=== PATIENT | male | born 1945 | race Caucasian/White ===

== ENCOUNTER 2018-11-20 07:27 | Inpatient (IN) | payer MEDICARE, OTHER ==
[~2018-11-20] VITALS: Ht 172.7 cm; Wt 82.2 kg
--- NOTE | 2018-11-20 07:35 | NUR ---
PAUL, FROM B AND C, C/O LEFT ELBOW PAIN S/P GLF. DENIES BEING UNCONSCIOUS. TACHY 120, WILL CONTINUE TO MONITOR. Addendum: 11/20/18 at 0754 by KENNETH CORRECTION: RIGHT ELBOW
[2018-11-20] MEDS ORDERED: ACETAMINOPHEN ES 500 MG TABLET ONE (07:58)
[2018-11-20] MEDS ORDERED: ACETAMINOPHEN ES 500 MG TABLET PO ONE (08:00)
[2018-11-20] MEDS ORDERED: IV NS 0.9% 1,000 ML BAG IV ONE (08:00)
[2018-11-20] MEDS ORDERED: VANCOMYCIN 1 GM in IV D5W 250 ML IV ONE (08:00)
[2018-11-20 08:19] LABS: BASOPHILS % (AUTO) 0.1 % (0.0-2.0); EOSINOPHILS % (AUTO) 0.5 % (0.0-6.0); HEMATOCRIT 44 % (39-51); HEMOGLOBIN 14.8 g/dL (13.5-17.5); LYMPHOCYTES # (AUTO) 0.7 /CMM (0.8-4.8); MEAN CORPUSCULAR HGB CONC 34 g/dl (31.0-36.0); MEAN CORPUSCULAR VOLUME 91 fL (80-96); MONOCYTES # (AUTO) 1.3 /CMM (0.1-1.30); MONOCYTES % (AUTO) 16.3 % (2.0-12.0); NEUTROPHILS # (AUTO) 6.1 /CMM (1.8-8.9); NEUTROPHILS % (AUTO) 74.1 % (43.0-81.0); PLATELET COUNT (AUTO) 198 /CMM (150-450); RED BLOOD CELL COUNT(AUTO) 4.78 MIL/uL (4.5-6.0); WHITE BLOOD COUNT (AUTO) 8.3 K/uL (4.3-11.0)
[2018-11-20 08:33] LABS: CARBON DIOXIDE 23 mmol/L (21-32); CHLORIDE 104 mmol/L (98-107); CREATININE 1.2 mg/dL (0.6-1.3); GLUCOSE 110 mg/dL (74-106); POTASSIUM 3.6 mmol/L (3.5-5.1); SODIUM SERUM 139 mmol/L (136-145); UREA NITROGEN, BLOOD 12 mg/dL (7-18)
[2018-11-20 08:48] LABS: APPEARANCE,URINE CLEAR (CLEAR); BILIRUBIN,URINE NEGATIVE (NEGATIVE); BLOOD, URINE NEGATIVE Ery/uL (NEGATIVE); COLOR,URINE YELLOW (YELLOW); KETONES,URINE TRACE (NEGATIVE); LEUKOCYTE ESTERASE ,URINE NEGATIVE (NEGATIVE); NITRITE, URINE NEGATIVE (NEGATIVE); PROTEIN,URINE NEGATIVE (NEGATIVE); UGLUCOSE NEGATIVE (NEGATIVE); UROBILINOGEN,URINE 0.2 EU/dL (0.2)
[2018-11-20 08:51] LABS: ALANINE AMINOTRANSFERASE 27 U/L (12-78); ALBUMIN 3.4 g/dL (3.4-5.0); ALKALINE PHOSPHATASE 38 U/L (46-116); ASPARTATE AMINOTRANSFERASE 20 U/L (15-37); TOTAL PROTEIN, SERUM 7.1 g/dL (6.4-8.2)
[2018-11-20 08:51] LABS: BACTERIA,URINE Rare /HPF (None Seen); RBC,URINE 0-2 /HPF (0-2); SQUAMOUS EPITHELIAL CELL,UR Rare /HPF (None Seen); WBC,URINE 0-2 /HPF (0-3)
[2018-11-20 08:57] LABS: BILIRUBIN,TOTAL 0.6 mg/dL (0.2-1.0)
[2018-11-20] MEDS ORDERED: CT SWABBABLE VALVE TRANS SET 1 EA INFUS.SET MC ONE (09:04)
[2018-11-20] MEDS ORDERED: IV NS 0.9% 250 ML IV ONE (09:04)
[2018-11-20] MEDS ORDERED: IOHEXOL-300 100 ML VIAL IV ONE (09:04)
[2018-11-20 09:08] LABS: BILIRUBIN,DIRECT 0.1 mg/dL (0.0-0.2)
--- NOTE | 2018-11-20 09:24 | NUR ---
RECEIVED A [facility] [phone]
[2018-11-20] MEDS ORDERED: PIPERACILLIN /TAZOBACTAM 3.375 G VIAL IV ONE (10:11)
[2018-11-20] MEDS ORDERED: PIPERACILLIN /TAZOBACTAM 3.375 G in IV D5W 50 ML IV ONE (10:30)
--- NOTE | 2018-11-20 11:30 | NUR ---
patient requested for straight catheter.
--- NOTE | 2018-11-20 11:32 | NUR ---
CALLED DR COTTON. ON THE PHONE WITH DR LOYA.
--- NOTE | 2018-11-20 11:50 | NUR ---
310-[address] GRAVES
--- NOTE | 2018-11-20 12:14 | NUR ---
gave report to Bibi MADDEN. Patient will go to room 310
--- NOTE | 2018-11-20 12:29 | NUR ---
PATIENT TRANSFERRED TO ROOM 310-2 MED SURG, ACCOMPANIED BY TECH. PATIENT IN STABLE CONDITION, ON O2 AT 2LPM VIA NC WITH SPO2 OF 97%.
--- NOTE | 2018-11-20 12:37 | NUR ---
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 Patient fully admitted, awaiting orders.
[2018-11-20 12:59] VITALS: BP 124/90
[2018-11-20 13:00] VITALS: BP 168/62
[2018-11-20] MEDS ORDERED: ZOLPIDEM TARTRATE 5 MG TABLET PO PRN (13:30)
[2018-11-20] MEDS ORDERED: MAG HYDROX/AL HYDROX/SIMETH 30 ML UDC PO PRN (13:30)
[2018-11-20] MEDS ORDERED: Z GUARD REMEDY 2 OZ OINT TP PRN (13:30)
[2018-11-20] MEDS ORDERED: MAGNESIUM HYDROXIDE 30 ML UDC PO PRN (13:30)
[2018-11-20] MEDS ORDERED: ONDANSETRON HCL/PF 4 MG/2 ML VIAL IVP PRN (13:30)
[2018-11-20] MEDS ORDERED: HYDROCODONE/APAP 5/325MG 1 EACH TABLET PO PRN (13:30)
--- NOTE | 2018-11-20 14:45 | NUR ---
MS/RN Orders Admitting orders given by Dr Jacome.
[2018-11-20] MEDS ORDERED: FEE PK DOSING 1 MIN EA MC ONE (14:53)
[2018-11-20] MEDS: ACETAMINOPHEN 325 MG TABLET PO PRN (15:26)
[2018-11-20] MEDS: IV NS 0.9% 1,000 ML IV PRN (15:28)
[2018-11-20 16:00] VITALS: BP 132/78
[2018-11-20] MEDS: PIPERACILLIN /TAZOBACTAM 3.375 G in IV D5W 50 ML IV SCH (17:58)
[2018-11-20] MEDS ORDERED: PIPERACILLIN /TAZOBACTAM 4.5 G in IV D5W 50 ML IV SCH (18:00)
--- NOTE | 2018-11-20 18:22 | NUR ---
MS/RN End note All orders noted and carried out, IVAB infusing as ordered, no reaction noted. Patient educated as to what each new medication was for and possible side effects to look out for and be aware off. Needs attended, will endorse to shift superintendent caustic cresylate.
--- NOTE | 2018-11-20 19:05 | NUR ---
RN MS OPENING NOTES RECEIVED PATIENT IN BED, AWAKE ALERT AND ORIENTED X3, ABLE TO MAKE SIMPLE NEEDS KNOWN, RESPIRATIONS EVEN AND UNLABORED WITH EQUAL RISE AND FALL OF CHEST, DENIES ANY PAIN OR DISCOMFORT AT THIS TIME, IV SITE TO RIGHT AC #18G INTACT AND PATENT, NO REDNESS, NO INFILTRATION PRESENT, IVF RUNNING ORDERED, ORIENTED TO STAFF AND CALL LIGHT AND KEPT WITHIN REACH, SAFETY PRECAUTIONS IN PLACE, LOW BED AND LOCKED, SAFETY PRECAUTIONS IN PLACE, BED ALARM IN PLACE, PATIENT PROVIDED WITH PERINEAL CARE AND REPOSITIONED AND HEELS OFFLOADED, ALL NEEDS ATTENDED AT THIS TIME, REMAINS COMFORTABLE WILL CONTINUE TO MONITOR AND ADDRESS NEEDS.
[2018-11-20 20:00] VITALS: BP 113/73
--- NOTE | 2018-11-20 20:18 | NUR ---
MARYANNE MS NOTES EKG DONE RESULTS NORMAL ECG SINUS RHYTHM 79 BPM
--- NOTE | 2018-11-20 21:00 | NUR ---
RN MS NOTES PER PATIENT HAS NOT HAD A BM IN A COUPLE DAYS, DENIES ANY ABD PAIN AT THIS TIME, PRUNE JUICE OFFERED AND GIVEN , OFFERED MILK OF MAGNESIUM, PATIENT DOES NOT WANT AT THIS TIME WANTS TO TRY PRUNE JUICE FIRST.
[2018-11-20] MEDS: VANCOMYCIN 1 GM in IV D5W 250 ML IV SCH (21:16)
[2018-11-21] MEDS: PIPERACILLIN /TAZOBACTAM 3.375 G in IV D5W 50 ML IV SCH ×4 (00:03→17:39)
--- NOTE | 2018-11-21 04:54 | NUR ---
RN MS NOTES PRUNE JUICE EFFECTIVE HAD LARGE BOWEL MOVEMENT
[2018-11-21] MEDS: IV NS 0.9% 1,000 ML IV PRN ×2 (05:17→21:03)
--- NOTE | 2018-11-21 06:23 | NUR ---
RN MS CLOSING NOTES PATIENT IN BED, AWAKE ALERT AND ORIENTED X3, ABLE TO MAKE SIMPLE NEEDS KNOWN, RESPIRATIONS EVEN AND UNLABORED WITH EQUAL RISE AND FALL OF CHEST, 0N 2 L VIA NC, DENIES ANY PAIN OR DISCOMFORT AT THIS TIME, IV SITE TO RIGHT AC #18G INTACT AND PATENT, NO REDNESS, NO INFILTRATION PRESENT, IVF RUNNING ORDERED,CALL LIGHT KEPT WITHIN REACH, SAFETY PRECAUTIONS IN PLACE, LOW BED AND LOCKED, BED ALARM IN PLACE, PATIENT PROVIDED WITH PERINEAL CARE AND REPOSITIONED AND HEELS OFFLOADED, HEELS AND SACRAL SKIN IS INTACT, ALL NEEDS ATTENDED AT THIS TIME, REMAINS COMFORTABLE WILL CONTINUE TO MONITOR AND ADDRESS NEEDS AND ENDORSE TO NEXT SHIFT. NO CHANGES THROUGH OUT SHIFT.
--- NOTE | 2018-11-21 07:30 | NUR ---
RN OPENING NOTES PATIENT IN STABLE CONDITION. A/OX3, ABLE TO MAKE NEEDS KNOWN, EPISODES OF CONFUSION NOTED. NOT IN ANY FORM OF DISTRESS, NO SOB, DENIED PAIN OR DISCOMFORT AT THIS TIME. IV ACCESS INTACT AND PATENT. KEPT PATIENT SAFE AND COMFORTABLE. BED IN LOW/LOCKED POSITION, SIDERAILS UPX2, CALL LIGHT IN REACH. WILL CONTINUE TO MONITOR ACCORDINGLY.
[2018-11-21 07:31] LABS: BASOPHILS % (AUTO) 0.2 % (0.0-2.0); EOSINOPHILS % (AUTO) 1.9 % (0.0-6.0); HEMATOCRIT 42 % (39-51); HEMOGLOBIN 14.2 g/dL (13.5-17.5); LYMPHOCYTES # (AUTO) 1.2 /CMM (0.8-4.8); LYMPHOCYTES % (AUTO) 19.2 % (20.0-44.0); MEAN CORPUSCULAR HGB CONC 34 g/dl (31.0-36.0); MEAN CORPUSCULAR VOLUME 92 fL (80-96); MONOCYTES # (AUTO) 1.2 /CMM (0.1-1.30); MONOCYTES % (AUTO) 18.7 % (2.0-12.0); NEUTROPHILS # (AUTO) 3.7 /CMM (1.8-8.9); PLATELET COUNT (AUTO) 181 /CMM (150-450); RED BLOOD CELL COUNT(AUTO) 4.58 MIL/uL (4.5-6.0); WHITE BLOOD COUNT (AUTO) 6.2 K/uL (4.3-11.0)
[2018-11-21 07:38] LABS: ALANINE AMINOTRANSFERASE 21 U/L (12-78); ALBUMIN 2.9 g/dL (3.4-5.0); ALKALINE PHOSPHATASE 31 U/L (46-116); ASPARTATE AMINOTRANSFERASE 26 U/L (15-37); BILIRUBIN,TOTAL 0.6 mg/dL (0.2-1.0); CALCIUM, SERUM 8.9 mg/dL (8.5-10.1); GLUCOSE 103 mg/dL (74-106); PHOSPHORUS 3.1 mg/dL (2.5-4.9); TOTAL PROTEIN, SERUM 6.5 g/dL (6.4-8.2); UREA NITROGEN, BLOOD 11 mg/dL (7-18)
[2018-11-21 07:46] LABS: CARBON DIOXIDE 26 mmol/L (21-32); CHLORIDE 107 mmol/L (98-107); POTASSIUM 4.1 mmol/L (3.5-5.1); SODIUM SERUM 142 mmol/L (136-145)
[2018-11-21 07:50] LABS: CHOLESTEROL 125 mg/dL (<200); HDL CHOLESTEROL 31 mg/dL (40-60); LDL 83 mg/dL (0-99); TRIGLYCERIDES 70 mg/dL (30-150)
[2018-11-21 08:00] VITALS: BP 126/84
[2018-11-21 08:57] LABS: EOSINOPHILS % (MANUAL) 4 % (0-4); LYMPHOCYTES % (MANUAL) 18 % (16-48); MONOCYTES % (MANUAL) 17 % (0-11.0); NEUTROPHILS % (MANUAL) 61 (42-76)
[2018-11-21] MEDS: ACETAMINOPHEN 325 MG TABLET PO PRN ×2 (09:02→22:41)
[2018-11-21] MEDS: VANCOMYCIN 1 GM in IV D5W 250 ML IV SCH ×2 (09:04→21:00)
--- NOTE | 2018-11-21 09:43 | NUR ---
WOUND CARE CONSULT: PT PRESENTS WITH INCONTINENCE AND RED AREA ON RT SIDE OF FACE/CHEEK, PRESENT ON ADMISSION. RECOMMENDATIONS MADE FOR SKIN PROTECTION. DISCUSSED WITH NURSING STAFF. DEFER TO MD FOR FACIAL REDNESS. WILL SEE PRN. CURRENT CHELSEA SCORE IS 16. Addendum: 11/21/18 at 0944 by KALPESH HUSAIN WNDNU Amended: Links added.
[2018-11-21 15:57] VITALS: BP 106/74
[2018-11-21] MEDS: LACTOBACILLUS RHAMNOSUS GG 1 EACH CAP.SPRINK PO SCH (17:29)
--- NOTE | 2018-11-21 17:35 | NUR ---
RN NOTES: HOME MEDS FOLLOWED UP WITH PATIENT'S L[facility]LORD REGARDING HOME MEDS. SHE WILL GIVE IT TOMORROW BECAUSE SHE DOESNT HAVE THE LIST WITH HER AT THE MOMENT.
--- NOTE | 2018-11-21 19:37 | NUR ---
RN CLOSING NOTES PATIENT IN STABLE CONDITION. ALL NEEDS ATTENDED AND PROVIDED. ALL DUE MEDICATIONS ADMINISTERED ORDERED. KEPT PATIENT SAFE AND COMFORTABLE. BED IN LOW/LOCKED POSITON, SIDERAIL UP X 2, CALL LIGHT IN REACH. ENDORSED TO NIGHT RN FOR RAYNE.
--- NOTE | 2018-11-21 19:50 | NUR ---
MS RN NOTES RECEIVED ON BED A/O X 2-3,BREATHING NORMAL,NOT IN ANY FORM OF DISTRESS.IVF NS 75ML/HR RATE IN PROGRESS VIA IV PUMP ON RIGHT AC,SITE PATENT.INCONTINENT OF URINE,CALL LIGHT IN REACH,NEEDS ANTICIPATED.
[2018-11-21 20:00] VITALS: BP 108/78
--- NOTE | 2018-11-21 20:00 | NUR ---
MS RN NOTES VANCO TROUGH 11,DOSE ADMINISTERED
--- NOTE | 2018-11-21 22:41 | NUR ---
MS RN NOTES C/O GENERALIZED PAIN 3/10 ON PAIN SCALE,TYLENOL 650MG PO GIVEN PER PATIENT REQUEST.
[2018-11-22] MEDS: PIPERACILLIN /TAZOBACTAM 3.375 G in IV D5W 50 ML IV SCH ×5 (00:09→23:50)
--- NOTE | 2018-11-22 06:55 | NUR ---
MS RN NOTES CALM AND QUIET THRU OUT SHIFT.SLEPT WELL,IVF IN PROGRESS,IV ABX TOLERATED WELL.IN NO ACUTE DISTRESS.WILL ENDORSE TO DAY NURSE FOR RAYNE
--- NOTE | 2018-11-22 07:20 | NUR ---
RN OPENING NOTES PATIENT IN STABLE CONDITION. A/OX3, ABLE TO MAKE NEEDS KNOWN. NOT IN ANY FORM OF DISTRESS, NO SOB, DENIED PAIN OR DISCOMFORT AT THIS TIME. IV ACCESS INTACT AND PATENT. KEPT PATIENT SAFE AND COMFORTABLE. BED IN LOW/LOCKED POSITION, SIDERAILS UPX2, CALL LIGHT IN REACH. WILL CONTINUE TO MONITOR ACCORDINGLY.
[2018-11-22 07:30] LABS: CALCIUM, SERUM 8.8 mg/dL (8.5-10.1); CARBON DIOXIDE 28 mmol/L (21-32); CHLORIDE 108 mmol/L (98-107); CREATININE 1.1 mg/dL (0.6-1.3); GLUCOSE 100 mg/dL (74-106); POTASSIUM 4.3 mmol/L (3.5-5.1); SODIUM SERUM 144 mmol/L (136-145); UREA NITROGEN, BLOOD 10 mg/dL (7-18)
[2018-11-22 08:00] VITALS: BP 114/63
[2018-11-22] MEDS: LACTOBACILLUS RHAMNOSUS GG 1 EACH CAP.SPRINK PO SCH ×2 (09:01→17:26)
[2018-11-22] MEDS: VANCOMYCIN 1 GM in IV D5W 250 ML IV SCH ×2 (09:01→20:47)
[2018-11-22] MEDS ORDERED: TRAZ-182 PO (15:47)
[2018-11-22] MEDS ORDERED: CARB-93 PO (15:47)
[2018-11-22] MEDS ORDERED: DIVA-78 PO (15:47)
[2018-11-22] MEDS ORDERED: OLAN15TA3 PO (15:47)
[2018-11-22] MEDS ORDERED: LORA0.5T PO (15:47)
[2018-11-22] MEDS ORDERED: CHOL100044 PO (15:47)
[2018-11-22] MEDS ORDERED: PANT40TA2 PO (15:47)
[2018-11-22] MEDS ORDERED: BENZ0.5T43 PO (15:47)
[2018-11-22] MEDS ORDERED: LOSA50TA39 PO (15:47)
[2018-11-22 16:00] VITALS: BP 120/75
[2018-11-22] MEDS: ACETAMINOPHEN 325 MG TABLET PO PRN (17:28)
[2018-11-22] MEDS: IV NS 0.9% 1,000 ML IV PRN (17:38)
--- NOTE | 2018-11-22 19:28 | NUR ---
MS RN RECEIVE PT IN BED. A/O X 3. RESPIRATIONS EVEN AND UNLABORED, NO SOB NOTED, NO DISTRESS, SAFETY MEASURES IN PLACE. WILL CONTINUE TO MONITOR.
[2018-11-22 20:00] VITALS: BP 125/79
[2018-11-23] MEDS: PIPERACILLIN /TAZOBACTAM 3.375 G in IV D5W 50 ML IV SCH ×2 (05:12→12:35)
--- NOTE | 2018-11-23 05:59 | NUR ---
RN CLOSING NOTE ASLEEP AND EASILY AWAKEN. NOT IN DISTRESS, STABLE. NEEDS ATTENDED AND ANTICIPATED, KEPT CLEAN AND DRY AND COMFORT. TOLERATING ROOM AIR 98%. GOOD SKIN CARE PROVIDED, NURSING CARE RENDERED, SAFETY MEASURES IN PLACE, BED IN LOW LOCKED POSITION, CALL LIGHT WITHIN EASY REACH. ENDORSE TO NEXT SHIFT CONTINUITY OF CARE.
[2018-11-23 06:56] LABS: CARBON DIOXIDE 25 mmol/L (21-32); CHLORIDE 107 mmol/L (98-107); CREATININE 1.1 mg/dL (0.6-1.3); GLUCOSE 100 mg/dL (74-106); SODIUM SERUM 143 mmol/L (136-145); UREA NITROGEN, BLOOD 11 mg/dL (7-18)
[2018-11-23 08:00] VITALS: BP 135/87
[2018-11-23] MEDS: LACTOBACILLUS RHAMNOSUS GG 1 EACH CAP.SPRINK PO SCH (08:47)
[2018-11-23] MEDS: ACETAMINOPHEN 325 MG TABLET PO PRN (08:47)
[2018-11-23] MEDS: VANCOMYCIN 1 GM in IV D5W 250 ML IV SCH (08:47)
--- NOTE | 2018-11-23 15:20 | NUR ---
REPORT GIVEN TO SCOTT MADDEN FROM [facility]. SHE ASK NOT TO REMOVE IV ASSESS SINCE PATIENT ON IV ANTIBIOTICS. CHARGE NURSE NOTIFIED.
--- NOTE | 2018-11-23 16:30 | NUR ---
PATIENT CLEARED FOR D/C TO [facility] BY . PATIENT ALERT AND ORIENTED X 3, VS ARE STABLE AND WITHIN THE NORMAL RANGE, AFEBRILE.NO DISTRESS , NO COMPLAIN OF PAIN. PATIENT D/C WITH IV ANTIBIOTICS FOR 7 MORE DAYS. NEW IV LINE INSERTED TO THE LEFT FOREARM G #22 AND DATED,FLASHED WELL. OLD IV LINE REMOVED, NO REDNESS AT THE SITE NOTED. ID WRIST BAND REMOVED. PICTURES ARE TAKEN AND PLACED IN THE CHART( NO WOUNDS). D/C INSTRUCTIONS AND EDUCATION PROVIDED TO PATIENT. PATIENT VERBALIZED UNDERSTANDING AND SIGHED D/C FORMS WELL VALUABLE FORM (ALL BELONGINGS WITH THE PATIENT).MED.RECON FORM PROVIDED FOR THE FACILITY.PATIENT PICKED UP BY AMBULANCE IN STABLE CONDITION.
== END 2018-11-23 16:45 | DRG 602 ==
LOC: ER 07:27 → MED 12:06
PROVIDERS: ADMIT Internal Medicine; ATTEND Internal Medicine
DX: L03.211 Cellulitis of face (principal); N17.0 Acute kidney failure with tubular necrosis; G20 Parkinson's disease; F41.9 Anxiety disorder, unspecified; I10 Essential (primary) hypertension; K21.9 Gastro-esophageal reflux disease without esophagitis; F29 Unspecified psychosis not due to a substance or known physiological condition; Z88.0 Allergy status to penicillin; W07.XXXA Fall from chair, initial encounter; Y92.009 Unspecified place in unspecified non-institutional (private) residence as the place of occurrence of the external cause
CPT/HCPCS: 36415; 70487-TC; 71045-TC; 73030-TC; 80048-TC; 80053-TC; 80061-TC; 80076-TC; 80202-TC; 81000-TC; 83605-TC; 83735-TC; 84100-TC; 84484-TC; 85025-TC; 85730-TC; 87040-TC; 87081-TC; 87086-TC; 97110-TC; 97116-TC; 97530-TC; G0378; J2543; J3370; J7030; J7050; J7060; Q9967

== ENCOUNTER 2018-11-27 15:01 | Emergency (ER) | payer MEDICARE ==
[~2018-11-27] VITALS: Ht 170.2 cm; Wt 83.5 kg
[~2018-11-27 15:01] MED LIST: BENZ0.5T43 PO; CARB-93 PO; CHOL100044 PO; DIVA-78 PO; LORA0.5T PO; LOSA50TA39 PO; OLAN15TA3 PO; PANT40TA2 PO; TRAZ-182 PO
--- NOTE | 2018-11-27 15:30 | NUR ---
PT'S CONSERVATOR CALLED. TIGIST WICK IS THE CONSERVATOR AND CAN BE REACHED AT [phone]. PT CAME FROM [facility].
--- NOTE | 2018-11-27 17:30 | NUR ---
PT APPEARS TO BE RESTING COMFORTABLY WITH NO S/S OF PAIN OR DISTRESS.
--- NOTE | 2018-11-27 17:44 | NUR ---
CALLED [facility]. ETA 10-15 MINS TRIP # [id number]
--- NOTE | 2018-11-27 18:25 | NUR ---
Patient discharged to home in stable condition. Written and verbal after care instructions given. Patient verbalizes understanding of instruction. COPY OF CT GIVEN TO EMT. PT'S VSS.
[2018-11-27 18:28] VITALS: BP 144/85
== END 2018-11-27 18:30 | disposition home or self-care (01) ==
LOC: ER 15:05
DX: S09.8XXA Other specified injuries of head, initial encounter (principal); G20 Parkinson's disease; I10 Essential (primary) hypertension; W18.09XA Striking against other object with subsequent fall, initial encounter; Y93.89 Activity, other specified; Y92.89 Other specified places as the place of occurrence of the external cause; Y99.8 Other external cause status
CPT/HCPCS: 70450; 99284; A4606

== ENCOUNTER 2019-01-26 15:55 | Emergency (ER) | payer MEDICARE ==
[~2019-01-26] VITALS: Ht 180.3 cm; Wt 90.3 kg
--- NOTE | 2019-01-26 15:59 | NUR ---
PT HALFWAY ANDREW ESCOTO FOR UPDATES: [phone]
--- NOTE | 2019-01-26 16:05 | NUR ---
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 HX OF PARKINSON'S DSE. TO ER BED 10, HOOKED TO MONITOR, CHANGED TO GOWN, PROVIDED W WARM BLANKET, AWAITING MD MOREJON.
--- NOTE | 2019-01-26 16:07 | NUR ---
DR LOYA AT BEDSIDE
[2019-01-26 16:30] LABS: BASOPHILS # (AUTO) 0.1 /CMM (0.0-0.2); BASOPHILS % (AUTO) 0.8 % (0.0-2.0); EOSINOPHILS % (AUTO) 3.6 % (0.0-6.0); HEMATOCRIT 43 % (39-51); HEMOGLOBIN 14.3 g/dL (13.5-17.5); LYMPHOCYTES # (AUTO) 1.6 /CMM (0.8-4.8); MEAN CORPUSCULAR HGB CONC 33 g/dl (31.0-36.0); MEAN CORPUSCULAR VOLUME 93 fL (80-96); MONOCYTES # (AUTO) 0.7 /CMM (0.1-1.30); NEUTROPHILS # (AUTO) 3.8 /CMM (1.8-8.9); NEUTROPHILS % (AUTO) 59.6 % (43.0-81.0); PLATELET COUNT (AUTO) 219 /CMM (150-450); WHITE BLOOD COUNT (AUTO) 6.3 K/uL (4.3-11.0)
[2019-01-26 16:37] LABS: CALCIUM, SERUM 8.5 mg/dL (8.5-10.1); CARBON DIOXIDE 17 mmol/L (21-32); CHLORIDE 105 mmol/L (98-107); CREATININE 1.3 mg/dL (0.6-1.3); GLUCOSE 108 mg/dL (74-106); SODIUM SERUM 141 mmol/L (136-145); UREA NITROGEN, BLOOD 15 mg/dL (7-18)
[2019-01-26 16:50] LABS: B-TYPE NATRIURETIC PEPTIDE 42 PG/ML (0-125)
[2019-01-26] MEDS ORDERED: IV NS 0.9% 1,000 ML BAG IV ONE (17:00)
--- NOTE | 2019-01-26 18:20 | NUR ---
YAJAIRA BIRCH ETA TO [facility] ON [address] [id number] ETA TRIP #[id number]
--- NOTE | 2019-01-26 18:36 | NUR ---
ANDREW ESCOTO AWARE OF PT COMING BACK [facility]
--- NOTE | 2019-01-26 19:27 | NUR ---
REPORT GIVEN TO ROHIT MADDEN FOR RAYNE
--- NOTE | 2019-01-26 19:39 | NUR ---
Patient discharged to home in stable condition. Written and verbal after care instructions given. Patient verbalizes understanding of instruction. Requested for tax vocheer, Chris charge notified, arranged for cab.
[2019-01-26 19:41] VITALS: BP 117/75
== END 2019-01-26 19:42 | disposition home or self-care (01) ==
LOC: ER 15:56
DX: G20 Parkinson's disease (principal); R53.1 Weakness; I10 Essential (primary) hypertension; R00.0 Tachycardia, unspecified
CPT/HCPCS: 36415; 71045; 80048; 83880; 84484; 85025; 93005; 99284; J7030